=== PATIENT | male | born 1965 | race Caucasian/White ===

== ENCOUNTER 2017-07-28 14:31 | Day surgery (SDC) | payer OTHER ==
[~2017-07-28] VITALS: Ht 170.2 cm; Wt 106.4 kg
[2017-07-28] MEDS ORDERED: HYDR-3027 PO (15:16)
[2017-07-28] MEDS ORDERED: NO MEDS. (15:16)
[2017-07-28] MEDS ORDERED: IBUP800T25 PO (15:16)
[2017-07-28 15:17] VITALS: Ht 170.2 cm; Wt 106.4 kg
[2017-07-28] MEDS ORDERED: PROPOFOL 40 ML ONE (15:22)
--- NOTE | 2017-07-28 16:22 | OPPN ---
Date/Time of Note Date/Time of Note DATE: 07/28/17 TIME: 16:21 Operative Report Preoperative Diagnosis Positive occult blood in stool Postoperative Diagnosis Sigmoid polyp was removed using snare and electrocautery 3 small proximal colon polyps were removed using biopsy forceps Internal hemorrhoids Operation/Procedure Performed Colonoscopy biopsy polypectomy and clipping Surgeon see signature line teacher's assistant None Anesthesia: MAC Estimated blood loss: none Transfusion Required none Specimen Colon polyps Grafts/Implants none Complications none AGGIE MANCINI MD Jul 28, 2017 16:22
--- NOTE | 2017-07-28 21:22 | GILP ---
DATE OF PROCEDURE: NAME OF THE PROCEDURE: Colonoscopy, biopsy, polypectomy and clipping of the polypectomy site. INDICATION FOR THE PROCEDURE: Mr. Bertin Cano is a 52-year-old male patient who was noted to have positive occult blood in stool, so the patient was scheduled for colonoscopy for further evalu ation. The procedure and possible complications were well explained to the patient. The patient understood and consented to the procedure. DESCRIPTION OF PROCEDURE: Under the influence of anesthesia, the colonoscope was carefully introduc ed in the rectum and under direct vision, it was advanced all the way to the cecum. FINDINGS: The patient had a sigmoid colon polyp, and it was removed using the snare and electrocaut elijah. The patient had a slight amount of bleeding at the polypectomy site, so clipping of the polype ctomy site was done to stop the bleeding. The patient had 3 small polyps in the proximal part of th e colon, and they were removed using biopsy forceps. He had internal hemorrhoids. He tolerated the procedure very well, and there was no complication from the procedure. At the end of the procedure, he was awake with stable vital signs, and he was discharged home to the care of hi s family. IMPRESSION: 1. Colonoscopy all the way to the cecum. 2. Sigmoid colon polyp was removed using the snare and electrocautery. 3. Clipping of the polypectomy site was done to stop bleeding. 4. Three small proximal colon polyps were removed using biopsy forceps. 5. Internal hemorrhoids. PLAN: 1. Await histopathology report. 2. Next screening colonoscopy in 5 years. Dictated By: AGGIE TOLBERT/JAMA Conf#: [id number] DID#: [id number]
== END 2017-07-28 17:00 | disposition home or self-care (01) ==
LOC: GIL 14:31
PROVIDERS: ATTEND Internal Medicine Gastroenterology
DX: Z12.11 Encounter for screening for malignant neoplasm of colon (principal); D12.5 Benign neoplasm of sigmoid colon; K64.8 Other hemorrhoids
CPT/HCPCS: 45380; 45385; 88305; Z7610